=== PATIENT | female | born 1980 | race Caucasian/White ===

== ENCOUNTER 2017-09-19 14:06 | Emergency (ER) | payer SELFPAY ==
[2017-09-19 14:16] VITALS: TEMP 99.3
[2017-09-19] MEDS ORDERED: ONDANSETRON 4 MG/2 ML VIAL IVP ONE ×2 (14:19→15:40)
[2017-09-19] MEDS ORDERED: NS 1,000 ML IV ONE (14:19)
[2017-09-19] MEDS ORDERED: HYDROmorphONE/DILAUDID 1 MG/ML INJ IVP ONE ×2 (14:35→15:16)
[2017-09-19 14:40] LABS: COLOR YELLOW; LEUKOCYTE ESTERASE,URINE NEGATIVE (NEGATIVE); NITRITE,URINE NEGATIVE (NEGATIVE)
[2017-09-19 14:53] LABS: ANION GAP 15 mEq/L (8-16); CALCIUM 9.8 mg/dL (8.5-10.4); CARBON DIOXIDE 24 mEq/l (22-31); CHLORIDE 105 mEq/L (97-110); CREATININE 0.8 mg/dL (0.6-1.0); GLOMERULAR FILTRATION RATE > 60; GLUCOSE 109 mg/dL (70-100); SODIUM 144 mEq/L (134-144)
--- NOTE | 2017-09-19 15:06 | EDPHY ---
H & P Stated Complaint: 2-3 hours if abd pain right and n/v Source: Patient - Personal History LMP (Females 10-55): Over 28 Days Ago Current Tetanus Diphtheria and Acellular Pertussis (TDAP): Yes - Medical/Surgical History Hx Asthma: No Hx Chronic Respiratory Disease: No Hx Diabetes: No Hx Cardiac Disease: No Hx Renal Disease: No Hx Cirrhosis: No Hx Alcoholism: No Hx HIV/AIDS: No Hx Splenectomy or Spleen Trauma: No Other PMH: "ovarian" - Social History Smoking Status: Former smoker Alcohol Use: None Drug Use: None Time Seen by Provider: 09/19/17 14:22 HPI/ROS: This patient reports abrupt onset of right lower quadrant abdominal pain while at rest at home 2 hr prior to arrival 8/10 in intensity associated with vomiting 2 times. The emesis is yellow and she feels that secondary to the severe pain that feels sharp in nature. The pain is nonradiating. She has not had this occur to her before. She reports that bumps in the road on the way here did increase the severity of her pain. She felt well prior to the onset of the symptoms. The patient has a history of endometriosis its states that this pain is more sharp in nature than her endometriosis pain came on much more abruptly. ROS: No fevers or chills. No fatigue. No other constitutional symptoms. HEENT: No complaints new line pulmonary: No shortness of breath. Cardiovascular: No lightheadedness or heart palpitations. No chest pain GI: No belly distention. No hematemesis. She reports normal bowel movements recently. : No dysuria. No hematuria. No vaginal discharge. Last menstrual period more than a year ago due to Lupron. Integumentary: No rash. Endocrine: No complaints Complete review of symptoms otherwise negative. (Christopher Brown) - Medical/Surgical History PMH: Endometriosis with 1 ectopic and 1 miscarriage Past surgical history: 2 laparoscopies for endometriosis Appendectomy (Christopher Brown) - Social History Additional Social History: Patient works in security at [employer] (Christopher Brown ) - Physical Exam Exam: Vital signs notable for mild tachypnea at 24, hypertension 150/98. Other vitals normal. General Appearance: Patient in some distress due to pain. She also has ongoing nausea. Eyes: Pupils equal and round no pallor or injection. ENT, Mouth: Mucous membranes moist. Respiratory: There are no retractions, lungs are clear to auscultation. Cardiovascular: Regular rate and rhythm. No murmur gallop or rub Gastrointestinal: Normoactive soft, moderate right lower quadrant/pelvic tenderness with no rebound tenderness. Back: No CVA tenderness Neurological: GCS 15 Skin: Warm and dry, no rashes. Musculoskeletal: Neck is supple nontender. Extremities are symmetrical, full range of motion. Psychiatric: Mood and affect normal other than mild anxiety attributable to her pain DIFFERENTIAL DIAGNOSIS: After history and physical exam differential diagnosis was considered for for an torsion, ureteral stone, ectopic , bowel obstruction, constipation, UTI (Christopher Brown) Constitutional: Initial Vital Signs Temperature (C) 37.4 C 09/19/17 14:12 Heart Rate 99 09/19/17 14:12 Respiratory Rate 24 H 09/19/17 14:12 Blood Pressure 150/98 H 09/19/17 14:12 O2 Sat (%) 98 09/19/17 14:12 O2 Delivery Mode Room Air Allergies/Adverse Reactions: ketorolac [From Toradol] Allergy (Verified 09/19/17 14:17) Sulfa (Sulfonamide Antibiotics) Allergy (Verified 09/19/17 14:17) Home Medications: Medication Instructions Recorded Lupron 09/19/17 Medical Decision Making - Diagnostics Imaging Results: Imaging Impressions Pelvic/Renal Ultrasound 09/19/17 14:36 Impression: 1. Normal appearance of the uterus. 2. Small follicles associated with the ovaries, with no dominant solid or cystic adnexal mass, torsion, or free fluid. Findings were discussed with Suleiman Frances MD at 15:35, on 09/19/2017. He indicated that the results of the patient's urinalysis recently returned, indicating hematuria. . Abdomen/Pelvis CT 09/19/17 15:36 Impression: 1. Nonobstructing 1-mm right nephrolithiasis. 2. No ureterolithiasis or hydronephrosis. 3. No bowel obstruction. Attention: This CT examination is specifically designed to evaluate patients who are clinically suspected of having acute obstructive uropathy. This examination does not use radiographic contrast, and as such, provides only a limited evaluation of the abdomen, pelvis and retroperitoneum. If there is further clinical suspicion for pathological conditions other than obstructive uropathy, a complete CT evaluation of the abdomen and pelvis utilizing intravenous, oral, and rectal contrast should be considered. Findings and recommendations discussed with Emergency Department physician, Dr. Suleiman Frances at 1632 hours on September 19, 2017. Final report concurs with initial preliminary interpretation. ED Course/Re-evaluation: IV normal saline bolus Zofran with relief of nausea Dilaudid IV with partial relief of pain Discussion: 37-year-old female presents with abrupt onset of right lower quadrant abdominal pain with consideration given to potential ovarian cyst or torsion and other etiology as per differential diagnosis above. Treatment is initiated, labs are ordered and pending. I also ordered pelvic ultrasound. I spoke with Dr. Suleiman Frances, [facility] emergency physician at 3:00 p.m. regarding this patient. He will follow up with her study results and finalize treatment and disposition. (Christopher Brown) 3:40 p.m. I evaluated the patient. She complains of still in pain. She has received 2 doses of Dilaudid and states that it they are not helping. She states that she is not sure what her allergic reaction is to Toradol but last time she tried it she began vomiting. She refuses to try again. I will treat her with lidocaine. I will also order a CT scan to rule out kidney stones because she has hematuria and a normal pelvic ultrasound. 4:30 p.m. the patient is feeling much better. Her repeat abdominal exam is benign. We discussed her CT results which are reassuring. She states that she was beginning to feel better just before she started receiving the lidocaine. We suspect that she may have passed a kidney stone. She is also questioning whether she is having a recurrence of her endometriosis. She has had several surgeries for this. She states that she may be starting to bleed vaginal again and this would account for the blood in her urine sample. She does not have a fever. She is not toxic-appearing. She is eager to be discharged. She declines further workup or testing at this time. (Suleiman Frances) Differential Diagnosis: Partial list of the Differential diagnosis considered include but were not limited to; kidney stone, endometriosis, ovarian cyst, ovarian torsion and although unlikely based on the history and physical exam, I also considered , urinary tract infection. I discussed these differential diagnoses and the plan with the patient as well as the usual and expected course. The patient understands that the diagnosis is provisional and that in medicine we are not always correct and that further workup is often warranted. Usual and customary warnings were given. All of the patient's questions were answered. The patient was instructed to return to the emergency department should the symptoms at all worsen or return, otherwise to followup with the physician as we discussed. (Suleiman Frances) - Data Points Laboratory Results: Laboratory Results 09/19/17 14:35 09/19/17 14:35 09/19/17 09/19/17 09/19/17 14:35 14:35 14:35 WBC RBC Hgb Hct MCV MCH MCHC RDW Plt Count MPV Neut % (Auto) Lymph % (Auto) [place] % (Auto) Eos % (Auto) Baso % (Auto) Nucleat RBC Rel Count Absolute Neuts (auto) Absolute Lymphs (auto) Absolute Monos (auto) Absolute Eos (auto) Absolute Basos (auto) Absolute Nucleated RBC Immature Gran % Immature Gran # Sodium 144 mEq/L mEq/L (134-144) Potassium 4.0 mEq/L mEq/L (3.5-5.2) Chloride 105 mEq/L mEq/L (97-110) Carbon Dioxide 24 mEq/l mEq/l (22-31) Anion Gap 15 mEq/L mEq/L (8-16) BUN 10 mg/dL mg/dL (7-23) Creatinine 0.8 mg/dL mg/dL (0.6-1.0) Estimated GFR > 60 Glucose 109 mg/dL H mg/dL (70-100) Calcium 9.8 mg/dL mg/dL (8.5-10.4) Beta HCG, Qual NEGATIVE Urine Color YELLOW Urine Appearance HAZY Urine pH 6.0 (5.0-7.5) Ur Specific Mccarr <= 1.005 (1.002-1.030) Urine Protein NEGATIVE (NEGATIVE) Urine Ketones NEGATIVE (NEGATIVE) Urine Blood TRACE H (NEGATIVE) Urine Nitrate NEGATIVE (NEGATIVE) Urine Bilirubin NEGATIVE (NEGATIVE) Urine Urobilinogen 0.2 EU EU (0.2-1.0) Ur Leukocyte Esterase NEGATIVE (NEGATIVE) Urine RBC 25-50 /hpf H /hpf (0-3) Urine WBC 0-1 /hpf /hpf (0-3) Ur Epithelial Cells 2+ /lpf H /lpf (NONE-1+) Urine Bacteria 1+ /hpf H /hpf (NONE SEEN) Urine Glucose NEGATIVE (NEGATIVE) 09/19/17 14:35 WBC 8.52 10^3/uL 10^3/uL (3.80-9.50) RBC 4.67 10^6/uL 10^6/uL (4.18-5.33) Hgb 13.4 g/dL g/dL (12.6-16.3) Hct 40.3 % % (38.0-47.0) MCV 86.3 fL fL (81.5-99.8) MCH 28.7 pg pg (27.9-34.1) MCHC 33.3 g/dL g/dL (32.4-36.7) RDW 14.1 % % (11.5-15.2) Plt Count 282 10^3/uL 10^3/uL (150-400) MPV 11.2 fL fL (8.7-11.7) Neut % (Auto) 69.9 % % (39.3-74.2) Lymph % (Auto) 23.2 % % (15.0-45.0) [place] % (Auto) 5.4 % % (4.5-13.0) Eos % (Auto) 0.4 % L % (0.6-7.6) Baso % (Auto) 0.7 % % (0.3-1.7) Nucleat RBC Rel Count 0.0 % % (0.0-0.2) Absolute Neuts (auto) 5.96 10^3/uL 10^3/uL (1.70-6.50) Absolute Lymphs (auto) 1.98 10^3/uL 10^3/uL (1.00-3.00) Absolute Monos (auto) 0.46 10^3/uL 10^3/uL (0.30-0.80) Absolute Eos (auto) 0.03 10^3/uL 10^3/uL (0.03-0.40) Absolute Basos (auto) 0.06 10^3/uL 10^3/uL (0.02-0.10) Absolute Nucleated RBC 0.00 10^3/uL 10^3/uL (0-0.01) Immature Gran % 0.4 % % (0.0-1.1) Immature Gran # 0.03 10^3/uL 10^3/uL (0.00-0.10) Sodium Potassium Chloride Carbon Dioxide Anion Gap BUN Creatinine Estimated GFR Glucose Calcium Beta HCG, Qual Urine Color Urine Appearance Urine pH Ur Specific M[place]arr Urine Protein Urine Ketones Urine Blood Urine Nitrate Urine Bilirubin Urine Urobilinogen Ur Leukocyte Esterase Urine RBC Urine WBC Ur Epithelial Cells Urine Bacteria Urine Glucose Medications Given: Discontinued Medications Hydromorphone HCl (Dilaudid) 0.5 mg IVP EDNOW ONE Stop: 09/19/17 14:36 Last Admin: 09/19/17 14:40 Dose: 0.5 mg Hydromorphone HCl (Dilaudid) 1 mg IVP EDNOW ONE Stop: 09/19/17 15:17 Last Admin: 09/19/17 15:20 Dose: 1 mg Sodium Chloride (Ns) 1,000 mls @ 0 mls/hr IV EDNOW ONE; Wide Open PRN Reason: Protocol Stop: 09/19/17 14:20 Last Admin: 09/19/17 14:30 Dose: 1,000 mls Lidocaine HCl 100 mg/ Sodium (Chloride) 110 mls @ 600 mls/hr IV EDNOW ONE Stop: 09/19/17 15:50 Last Admin: 09/19/17 15:53 Dose: 110 mls Ondansetron HCl (Zofran) 4 mg IVP EDNOW ONE Stop: 09/19/17 14:20 Last Admin: 09/19/17 14:30 Dose: 4 mg Ondansetron HCl (Zofran) 4 mg IVP EDNOW ONE Stop: 09/19/17 15:41 Last Admin: 09/19/17 15:50 Dose: 4 mg Departure - Departure Disposition: Home, Routine, Self-Care Clinical Impression: Abdominal pain Qualifiers: Abdominal location: right lower quadrant Qualified Code(s): R10.31 - Right lower quadrant pain Condition: Fair Instructions: Acute Abdominal Pain (ED) Referrals: Izzy Orozco MD [Medical Doctor] - As per Instructions
[2017-09-19 15:20] LABS: BACTERIA 1+ /hpf (NONE SEEN); RBC,URINE 25-50 /hpf (0-3); WBC,URINE 0-1 /hpf (0-3)
[2017-09-19] MEDS ORDERED: LIDOCAINE 1% 100 MG in NS 100 ML IV ONE (15:40)
[2017-09-19 15:41] LABS: % IMMATURE GRANULYOCYTES 0.4 % (0.0-1.1); ABSOLUTE IMMATURE GRANULOCYTES 0.03 10^3/uL (0.00-0.10); ADD DIFF? NO; ADD MORPH? NO; ADD SCAN? NO; ATYPICAL LYMPHOCYTE FLAG 10 (0-99); FRAGMENT RBC FLAG 0 (0-99); HEMATOCRIT 40.3 % (38.0-47.0); HEMOGLOBIN 13.4 g/dL (12.6-16.3); LEFT SHIFT FLG 0 (0-99); LIPEMIA HEMOLYSIS FLAG 80 (0-99); MEAN CELL HEMOGLOBIN 28.7 pg (27.9-34.1); MEAN CELL HEMOGLOBIN CONCENTR. 33.3 g/dL (32.4-36.7); MEAN CELL VOLUME 86.3 fL (81.5-99.8); MEAN PLATELET VOLUME 11.2 fL (8.7-11.7); PLATELET CLUMPS FLAG 0 (0-99); PLATELET COUNT 282 10^3/uL (150-400); RED BLOOD CELL COUNT 4.67 10^6/uL (4.18-5.33); RED CELL DISTRIBUTION WIDTH 14.1 % (11.5-15.2)
[2017-09-19 16:52] VITALS: RESP 18
[2017-09-19 16:58] VITALS: BP 124/62; PULSE 78; O2SAT 95
== END 2017-09-19 16:55 | disposition home or self-care (01) ==
LOC: CED 14:06
DX: R10.31 Right lower quadrant pain (principal); E86.9 Volume depletion, unspecified; Z87.891 Personal history of nicotine dependence
CPT/HCPCS: 74176-PO; 76856-PO; 80048-PO; 81003-PO; 81015-PO; 84703-PO; 85025-PO; 96374; J1170; J2405

== ENCOUNTER 2017-09-25 13:34 | Emergency (ER) | payer SELFPAY ==
[2017-09-25 13:50] VITALS: RESP 18
[2017-09-25] MEDS ORDERED: OXYCODONE/APAP 5/325 TAB PO ONE (14:03)
[2017-09-25] MEDS ORDERED: ONDANSETRON DISINTEGRATING 4 MG TAB PO ONE (14:03)
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
[2017-09-25] MEDS ORDERED: ONDANSETRON DISINTEGRATING 4 MG TAB ONE (14:04)
[2017-09-25] MEDS ORDERED: OXYCODONE/APAP 5/325 TAB ONE (14:04)
[2017-09-25] MEDS ORDERED: KETOROLAC 30 MG/1 ML SDV IM ONE (14:40)
[2017-09-25] MEDS ORDERED: KETOROLAC 30 MG/1 ML SDV ONE (14:40)
[2017-09-25 15:31] VITALS: BP 146/110; PULSE 78; TEMP 99; O2SAT 91
== END 2017-09-25 15:30 | disposition home or self-care (01) ==
PROC: 2W29X4Z Dressing of Left Upper Extremity using Bandage (ICD-10-PCS; principal; 2017-09-25)
DX: T23.262A Burn of second degree of back of left hand, initial encounter (principal); Z87.891 Personal history of nicotine dependence; X12.XXXA Contact with other hot fluids, initial encounter
CPT/HCPCS: J1885; L3908

== ENCOUNTER 2017-10-17 13:56 | Emergency (ER) | payer SELFPAY ==
[2017-10-17 14:19] VITALS: RESP 16; TEMP 98.4
[2017-10-17] MEDS ORDERED: ONDANSETRON 4 MG/2 ML VIAL IVP ONE (14:53)
[2017-10-17] MEDS ORDERED: HYDROmorphONE/DILAUDID 1 MG/ML INJ IVP ONE ×2 (14:53→16:03)
[2017-10-17] MEDS ORDERED: NS 1,000 ML IV ONE (15:04)
[2017-10-17 15:10] LABS: PLATELET COUNT 238 10^3/uL (150-400)
[2017-10-17] MEDS ORDERED: IBUPROFEN 800 MG TAB PO ONE (16:28)
--- NOTE | 2017-10-17 16:38 | EDPHY ---
H & P Stated Complaint: RLQ pain - Personal History LMP (Females 10-55): Extended Cycle BCP/Inj Current Tetanus/Diphtheria Vaccine: Yes Current Tetanus Diphtheria and Acellular Pertussis (TDAP): Yes - Medical/Surgical History Hx Asthma: No Hx Chronic Respiratory Disease: No Hx Diabetes: No Hx Cardiac Disease: No Hx Renal Disease: No Hx Cirrhosis: No Hx Alcoholism: No Hx HIV/AIDS: No Hx Splenectomy or Spleen Trauma: No Other PMH: "ovarian"/ ENDOMETRIOSIS, ovarian cysts. Appendectomy - Social History Smoking Status: Former smoker HPI/ROS: Chief complaint: Right lower quadrant and right-sided pelvic pain History of present illness: This is a 37-year-old female who presents to the emergency department for right lower quadrant and right lower sided pelvic pain. She reports the onset of symptoms earlier today. She describes a sharp pain. It is non radiating. She denies precipitating factors. She denies alleviating factors. She has had associated nausea but no vomiting. No diarrhea or constipation, no abnormal vaginal discomfort, discharge or bleeding , no urinary symptoms. Review of systems: A 10 point review of systems was obtained and other than described above was negative (Bay Leiva) - Physical Exam Exam: General Appearance: Alert, appears uncomfortable. Eyes: Pupils equal and round no pallor or injection. ENT, Mouth: Mucous membranes moist. Respiratory: There are no retractions, lungs are clear to auscultation. Cardiovascular: Regular rate and rhythm. Gastrointestinal: Bowel sounds are normal. Abdomen is soft and nondistended. There is tenderness in the inferior aspect of the right lower quadrant over the anterior surface of the right side of the pelvis. Neurological: Alert and oriented x4. Strength and sensation intact and symmetrical. Skin: Warm and dry, no rashes. Musculoskeletal: Neck is supple non tender. Extremities are symmetrical, full range of motion. Psychiatric: Patient is oriented X 3, there is no agitation. (Bay Leiva) Constitutional: Initial Vital Signs Temperature (C) 36.9 C 10/17/17 14:17 Heart Rate 95 10/17/17 14:17 Respiratory Rate 16 10/17/17 14:17 Blood Pressure 105/76 10/17/17 14:17 O2 Sat (%) 92 10/17/17 14:17 O2 Delivery Mode Room Air Allergies/Adverse Reactions: diphenhydramine [From Benadryl] Allergy (Verified 10/19/17 22:14) ketorolac [From Toradol] Allergy (Verified 10/19/17 22:14) Sulfa (Sulfonamide Antibiotics) Allergy (Verified 10/19/17 22:14) Home Medications: Medication Instructions Recorded Lupron 09/19/17 Hydrocodone/APAP 5/325 [[place] 1 tab PO Q4 #12 tab 10/17/17 5/325 (*)] Ondansetron Odt [Zofran Odt 4 mg 4 mg PO Q4 #10 tab 10/17/17 (*)] IBUPROFEN 10/19/17 Medical Decision Making - Diagnostics Imaging: Discussed imaging studies w/ lead sustainability specialist Radiologist ED Course/Re-evaluation: Patient seen under the supervision of my secondary supervising physician Dr. Arminda Mane. Patient presents as listed above. Ultimately she appears to have an ovarian cyst without evidence of complications. She is symptomatically treated with control of symptoms. She will be discharged home. Home care is discussed including pain management. She is asked to follow up with a primary care doctor for recheck. Return precautions are given. Patient voiced understanding and agreement with plan. (Bay Leiva) The patient was evaluated and managed by the physician drilling assistant. I have reviewed this chart and I agree with the findings and plan of care as documented , as indicated by my signature. I am the secondary supervising physician. ( Arminda Mane) Differential Diagnosis: Included but not limited to ovarian cyst, ovarian torsion, tubo-ovarian abscess , an associated complications, a colitis diverticulitis, she has had an appendectomy (Bay Leiva) - Data Points Laboratory Results: Laboratory Results 10/17/17 15:00 10/17/17 15:00 Medications Given: Discontinued Medications Hydromorphone HCl (Dilaudid) 1 mg IVP EDNOW ONE Stop: 10/17/17 14:54 Last Admin: 10/17/17 15:05 Dose: 1 mg Hydromorphone HCl (Dilaudid) 1 mg IVP EDNOW ONE Stop: 10/17/17 16:04 Last Admin: 10/17/17 16:07 Dose: 1 mg Sodium Chloride (Ns) 1,000 mls @ 0 mls/hr IV ONCE ONE; Wide Open PRN Reason: Protocol Stop: 10/17/17 15:05 Last Admin: 10/17/17 15:05 Dose: 1,000 mls Ibuprofen (Motrin) 800 mg PO EDNOW ONE Stop: 10/17/17 16:29 Last Admin: 10/17/17 16:41 Dose: 800 mg Ondansetron HCl (Zofran) 4 mg IVP EDNOW ONE Stop: 10/17/17 14:54 Last Admin: 10/17/17 15:05 Dose: 4 mg Promethazine HCl (Phenergan) 6.25 mg IVP EDNOW ONE Stop: 10/17/17 16:43 Last Admin: 10/17/17 16:55 Dose: 6.25 mg Departure - Departure Disposition: Home, Routine, Self-Care Clinical Impression: Ovarian cyst Condition: Good Instructions: Ovarian Cyst (ED) Additional Instructions: Follow-up with your primary care doctor for continued evaluation and care In regards to pain control see the following: Use ibuprofen [600] mg [3] times a day for the next 2-3 days for pain In addition You have been prescribed [[place]] for pain. [[place]] contains Tylenol, do not take extra Tylenol/acetaminophen/Apap with it. It is sedating. If symptoms worsen or new symptoms develop return to the emergency room for recheck Referrals: NONE *PRIMARY CARE P,. [Primary Care Provider] - As per Instructions [facility],. [Clinic] - As per Instructions Prescriptions: Hydrocodone/APAP 5/325 [[place] 5/325 (*)] 1 tab PO Q4 #12 tab Ondansetron Odt [Zofran Odt 4 mg (*)] 4 mg PO Q4 #10 tab
[2017-10-17] MEDS ORDERED: PROMETHAZINE HCL 25 MG/ML INJ IVP ONE (16:42)
[2017-10-17 18:05] VITALS: BP 101/76; PULSE 86; O2SAT 99
== END 2017-10-17 18:04 | disposition home or self-care (01) ==
DX: N83.201 Unspecified ovarian cyst, right side (principal); E86.9 Volume depletion, unspecified; Z87.891 Personal history of nicotine dependence
CPT/HCPCS: 96374; J1170; J2405; J2550

== ENCOUNTER 2017-10-19 22:09 | Emergency (ER) | payer SELFPAY ==
[2017-10-19 22:14] VITALS: TEMP 98.8
[2017-10-19] MEDS ORDERED: HYDROmorphONE/DILAUDID 1 MG/ML INJ IVP ONE (22:28)
[2017-10-19] MEDS ORDERED: NS 1,000 ML IV ONE (22:28)
[2017-10-19] MEDS ORDERED: ONDANSETRON 4 MG/2 ML VIAL IVP ONE (22:28)
--- NOTE | 2017-10-19 22:32 | EDPHY ---
H & P Stated Complaint: seen for same 2 days ago, dx with ovarian cyst, worsening pain /n/v Time Seen by Provider: 10/19/17 22:19 HPI/ROS: Chief Complaint: Right lower quadrant abdominal pain, recent diagnosis of ovarian cyst HPI: 37-year-old woman was diagnosed with a right-sided ovarian cyst in this department 2 days ago. Patient states she has been taking Monteview for the pain with good relief. This evening patient had onset of worsening nausea and vomiting. Pain is worse because she has not been able to take her medications. No fevers or chills. No diarrhea or constipation. She does have a history of appendectomy in the past. She has been taking 1/2 of a Monteview and 600 mg of ibuprofen twice a day. She had a negative test in her prior visit 2 days ago. ROS: 10 point Review of Systems is negative except as noted in the HPI. PMH: Appendectomy Social History: No smoking Family History: non-contributory Physical Exam: Gen: Awake, Alert, No Distress HEENT: Nose: no rhinorrhea Eyes: PERRLA, EOMI Mouth: Moist mucosa Neck: Supple, no JVD Chest: nontender, lungs clear to auscultation Heart: S1, S2 normal, no murmur Abd: Soft, has tenderness in the right adnexa, no guarding Back: no CVA tenderness, no midline tenderness Ext: no edema, non-tender Skin: no rash Neuro: CN II-XII intact, Sensation grossly intact, Strength 5/5 in bilateral upper and lower extremities - Medical/Surgical History Hx Asthma: No Hx Chronic Respiratory Disease: No Hx Diabetes: No Hx Cardiac Disease: No Hx Renal Disease: No Hx Cirrhosis: No Hx Alcoholism: No Hx HIV/AIDS: No Hx Splenectomy or Spleen Trauma: No Other PMH: "ovarian"/ ENDOMETRIOSIS, ovarian cysts. Appendectomy, ectopic preg - Social History Smoking Status: Former smoker Constitutional: Initial Vital Signs Temperature (C) 37.1 C 10/19/17 22:12 Heart Rate 77 10/19/17 22:12 Respiratory Rate 18 10/19/17 22:12 Blood Pressure 162/102 H 10/19/17 22:12 O2 Sat (%) 99 10/19/17 22:12 O2 Delivery Mode Room Air Allergies/Adverse Reactions: diphenhydramine [From Benadryl] Allergy (Verified 10/19/17 22:14) ketorolac [From Toradol] Allergy (Verified 10/19/17 22:14) Sulfa (Sulfonamide Antibiotics) Allergy (Verified 10/19/17 22:14) Home Medications: Medication Instructions Recorded Lupron 09/19/17 Hydrocodone/APAP 5/325 [Monteview 1 tab PO Q4 #12 tab 10/17/17 5/325 (*)] Ondansetron Odt [Zofran Odt 4 mg 4 mg PO Q4 #10 tab 10/17/17 (*)] IBUPROFEN 10/19/17 Medical Decision Making ED Course/Re-evaluation: Have reviewed the patient's prior medical record. She has a right adnexal cyst. She is not . She has had an appendectomy in the past. She has a nonsurgical abdomen at this time. Will treat her with IV Dilaudid, Zofran and fluids. She has a allergy to Toradol which was noted which she had appendectomy. She is uncertain of the reaction. She is able to take ibuprofen. Patient is still complaining of pain after Dilaudid. Is requesting more pain medications. I have offered her oral ibuprofen but she thinks she will vomits up. I have done extensive searching both in [employer] and the prescription drug monitoring program. Of note in the last month she has had 5 prescriptions fold for narcotic medications by 5 different providers in [place] ranging from [place], [place], [place], [place] and [place]. I have also performed research in [facility]. There are records of a patient with the same name and same day and month but records of several different years including 1982, 1983 , and 1979. When I review these records they are all of a young woman presenting with complaints of low pelvic pain. There were documented concerns about possible drug-seeking behavior. I confronted the patient was the nurse Rachel in the room. She is telling me that she had her identity stolen and somebody is accumulating thousands of dollars of medical bills her name. I have offered to call the police but she states she is been working with a police dispatcher in [place] regarding this. I have offered to contact the [place] police on her behalf in speak with this person as well but she states she does not recall their name does not have the name and phone or other cart with her. She states she would prefer to can do this on her own. At the same time she is telling that she is feeling significantly improved and would like to leave the emergency department. I have significant concerns about drug-seeking behavior and that this patient might be mass representing herself. I will recommending to be placed on a no narcotics list. - Data Points Medications Given: Discontinued Medications Hydrocodone Bitart/Acetaminophen (Monteview 5/325) 1 tab PO EDNOW ONE Stop: 10/20/17 00:02 Last Admin: 10/20/17 00:32 Dose: 1 tab Hydromorphone HCl (Dilaudid) 0.5 mg IVP EDNOW ONE Stop: 10/19/17 22:29 Last Admin: 10/19/17 23:37 Dose: 0.5 mg Hydromorphone HCl (Dilaudid) 0.5 mg IVP EDNOW ONE Stop: 10/20/17 01:16 Last Admin: 10/20/17 01:18 Dose: 0.5 mg Sodium Chloride (Ns) 1,000 mls @ 0 mls/hr IV ONCE ONE; Wide Open PRN Reason: Protocol Stop: 10/19/17 22:29 Last Admin: 10/19/17 23:38 Dose: 1,000 mls Ibuprofen (Motrin) 600 mg PO EDNOW ONE Stop: 10/20/17 00:02 Last Admin: 10/20/17 00:20 Dose: 600 mg Ondansetron HCl (Zofran) 4 mg IVP EDNOW ONE Stop: 10/19/17 22:29 Last Admin: 10/19/17 23:37 Dose: 4 mg Ondansetron HCl (Zofran) 4 mg IVP EDNOW ONE Stop: 10/20/17 00:02 Last Admin: 10/20/17 00:03 Dose: 4 mg Departure - Departure Disposition: Home, Routine, Self-Care Clinical Impression: Ovarian cyst Condition: Good Instructions: Pelvic Pain in Women (ED) Additional Instructions: Follow up with OBGYN in 3-4 days for further evaluation. Referrals: NONE *PRIMARY CARE P,. [Primary Care Provider] - As per Instructions
[2017-10-20] MEDS ORDERED: HYDROCODONE/APAP 5/325 TAB ONE
[2017-10-20] MEDS ORDERED: ONDANSETRON 4 MG/2 ML VIAL ONE
[2017-10-20] MEDS ORDERED: ONDANSETRON 4 MG/2 ML VIAL IVP ONE (00:01)
[2017-10-20] MEDS ORDERED: HYDROCODONE/APAP 5/325 TAB PO ONE (00:01)
[2017-10-20] MEDS ORDERED: IBUPROFEN 600 MG TAB PO ONE ×2 (00:01)
[2017-10-20 00:19] VITALS: BP 126/89; PULSE 79; RESP 19; O2SAT 97
[2017-10-20] MEDS ORDERED: HYDROmorphONE/DILAUDID 1 MG/ML INJ IVP ONE (01:15)
== END 2017-10-20 01:48 | disposition home or self-care (01) ==
DX: N83.201 Unspecified ovarian cyst, right side (principal); E86.9 Volume depletion, unspecified; Z90.89 Acquired absence of other organs; Z87.891 Personal history of nicotine dependence
CPT/HCPCS: 96374; J1170; J2405